=== PATIENT | female | born 1995 | race Caucasian/White ===

== ENCOUNTER → 2017-08-13 14:15 | Outpatient (CLI) | payer SELFPAY ==
--- NOTE | 2017-08-13 14:15 | DT_ITS ---
This patient was seen during an EMR downtime August 13, 2017 - August 20, 2017. This patient may have a combination of paper and electronic documentation or all paper documentation. All documentation is viewable within the e-chart portion of [employer] for each patient visit.
[2017-08-19 11:48] LABS: Chlamydia Trachomatis by PCR Negative (Negative); Neisserai gonorrhoeae by PCR Negative (Negative); Probe Check PASS; Sample Adequacy Control PASS; Specimen Processing Control PASS
[2017-08-27 11:11] LABS: HPV Reflexed? NOT INDICATED
== END ==
PROVIDERS: Visit Provider Obstetrics & Gynecology
DX: Z12.4 Encounter for screening for malignant neoplasm of cervix (principal); Z11.3 Encounter for screening for infections with a predominantly sexual mode of transmission
CPT/HCPCS: 87491; 87591; 88175; G0145

== ENCOUNTER → 2017-09-03 15:10 | Outpatient (CLI) | payer OTHER, SELFPAY ==
[2017-09-03 15:57] LABS: Color, Urine Yellow (Yellow); Glucose, Dipstick Normal (Normal); Ketone-Dipstick Negative (Negative); Leukocyte Esterase-Dipstick 100 /ul (Negative); Nitrite-Dipstick Negative (Negative); Occult Blood-Urine Negative /ul (Negative); Protein-Dipstick Negative (Negative); Urine Bilirubin Dipstick Negative (Negative); Urine Clarity Sl. Cloudy (Clear); Urine Urobilinogen Normal (Normal)
[2017-09-03 17:44] LABS: Absolute Lymphocyte Count 1.66 X10^3/ul (0.83-4.51); Absolute Neutrophil Count 8.2 X10^3/uL (2.0-7.7); Basophil# 0.01 X10^3/uL; Basophil% 0.1 % (0-1); Eosinophil# 0.14 X10^3/uL; Eosinophils% 1.3 % (0-5); Hematocrit 35.5 % (37-47); Hemoglobin 11.7 g/dl (12.0-15.0); Lymphocyte # 1.66 X10^3/ul (4.0); Lymphocyte % 15.3 % (19-41); Mean Corpuscular Hgb 32.1 pg (27.0-32.0); Mean Corpuscular Volume 97.3 fL (81-99); Mean Platelet Vol. 11.3 fl (6.2-12.0); Monocyte% 7.4 % (0-10); Neutrophil % 75.7 % (47-70); Platelet Count 245 K/mm3 (150-450); RBC Distribution Width CV 13.4 % (11.6-14.6); RBC Distribution Width SD 47.9 fl (35.1-43.9); Red Blood Count 3.65 M/mm3 (4.2-5.4); White Blood Count 10.8 K/mm3 (4.4-11.0)
[2017-09-03 17:49] LABS: POSITIVE COUNT NO; POSITIVE DIFFERENTIAL NO; POSITIVE MORPHOLOGY NO
[2017-09-03 17:51] LABS: Thyroid Stim Hormone (TSH) 1.19 uIU/mL (0.358-3.74)
[2017-09-03 18:29] LABS: HIV - WCH Non-Reactive (Nonreactive); Rubella IgG 267.6 IU/mL
[2017-09-05 14:35] LABS: HEPATITIS B SURFACE AG Negative (Negative); Hep C Antibodies <0.1 s/co ratio (0.0-0.9)
[2017-09-07 05:19] LABS: Prenatal RPR NONREACTIVE (NONREACTIVE)
== END ==
PROVIDERS: Visit Provider Obstetrics & Gynecology
DX: Z34.82 Encounter for supervision of other normal pregnancy, second trimester (principal)
CPT/HCPCS: 36415; 81002; 84443; 85025; 86703; 86762; 86803; 87340

== ENCOUNTER → 2017-10-01 13:47 | Outpatient (CLI) | payer SELFPAY ==
[2017-10-01 16:00] LABS: Glucose Challenge Gest 1H 50g 104 mg/dL (70-140)
== END ==
PROVIDERS: Visit Provider Obstetrics & Gynecology
DX: Z34.83 Encounter for supervision of other normal pregnancy, third trimester (principal)
CPT/HCPCS: 36415; 82950

== ENCOUNTER → 2017-11-28 13:37 | Outpatient (CLI) | payer SELFPAY ==
[2017-11-28 16:39] LABS: Group B Strep DNA By PCR Negative (Negative); Internal Control PASS; Probe Check PASS; Specimen Processing Control PASS
== END ==
PROVIDERS: Visit Provider Obstetrics & Gynecology
DX: Z36.85 Encounter for antenatal screening for Streptococcus B (principal)
CPT/HCPCS: 87081; 87653

== ENCOUNTER 2017-12-27 20:11 | Inpatient (IN) | payer SELFPAY ==
[2017-12-27 20:17] VITALS: BMI 28.0
[2017-12-27] MEDS: Lactated Ringers 1,000 ML 50 ML IV (20:30)
[2017-12-27 20:56] LABS: Hematocrit 36.6 % (37-47); Hemoglobin 12.4 g/dl (12.0-15.0); Mean Corp Hgb Conc 33.9 g/gl (32-36); Mean Corpuscular Hgb 33.4 pg (27.0-32.0); Mean Corpuscular Volume 98.7 fL (81-99); Mean Platelet Vol. 12.4 fl (6.2-12.0); Platelet Count 183 K/mm3 (150-450); RBC Distribution Width CV 12.6 % (11.6-14.6); RBC Distribution Width SD 44.1 fl (35.1-43.9); Red Blood Count 3.71 M/mm3 (4.2-5.4); White Blood Count 11.3 K/mm3 (4.4-11.0)
[2017-12-27 21:01] LABS: Scan Indicated on CBC? Y/N NO
--- NOTE | 2017-12-27 21:11 | PCM.OB.VAG ---
Vaginal Delivery Maternal Presentation: Active Labor Amniotic Membrane Rupture Type: Artificial Amniotic Fluid Description: Clear Final MARY: 12/24/17 Final MARY Source: US <20 weeks Gestational age: 40 Weeks and 3 Days Date of Procedure: 12/27/17 Pre-Operative Diagnosis: IUP Post-Operative Diagnosis: IUP Surgery/ Procedure Performed: Spontaneous Vaginal Delivery Type of Anesthesia: None Description of Procedure: Spontaneous vaginal delivery of a viable female with Apgars of 8/9 from an occiput anterior presentation with clear amniotic fluid and normal three-vessel placenta. No episiotomy. First-degree midline laceration repaired with 3-0 Vicryl suture. Sponge counts okay. Delivery physician: Gary Johnson MD. Presentation: Vertex Placental Delivery Description: Spontaneous Placenta Disposition: [facility] Cord Vessel Description: 3 Vessels Cord Entanglement: None Estimated Blood Loss: 250 cc Infant A gender: Female (1 minute): 8 (5 minute): 9 Episiotomy Description: None Laceration: Midline, 1st degree Medications given after delivery: IV Pitocin Complications: None
--- NOTE | 2017-12-27 21:12 | PCM.DCVAG ---
Discharge Diet: No Restrictions Discharge Activity: May Shower, May Take a Tub Bath May resume sexual activity in: 4-6 weeks Additional Activity Instructions:: Nothing in the vagina for 4-6 weeks. You may return to work/school in 6 weeks. Call your doctor if you observe: Fever of 101 or Higher, Inability to urinate, Inability to have a bowel movement, Using more than one pad per hour Additional Instructions: If you experience any of the following, contact your healthcare provider. Bleeding that soaks a pad every hour for 2 hours Unrelieved incision or abdominal pain Swelling, redness, discharge or bleeding from your incision or episiotomy site Your incision begins to separate Problems urinating (including inability to urinate or burning while urinating). Visual changes Severe headache Flu-like symptoms Pain or redness in one of both of your breasts Pain, warmth, tenderness or swelling in your legs, especially the calf area Frequent nausea and vomiting Symptoms of depression or anxiety If you experience any of the following, call 911 or go to the nearest Emergency Room. Chest pain Problems breathing Seizure activity Partial or complete paralysis of a body part, slurred speech, weakness or drooping of the face, or a sudden inability to walk or hold your balance Allergies/Adverse Reactions: Allergies No Known Allergies Allergy (Verified 09/19/16 04:06) Medications to take at Discharge Vit No.130/Iron/FA [ Vitamins] 1 each PO DAILY 09/19/16 Calcium Carbonate [Calcium] 500 mg PO BID 12/27/17 Please Follow Up With: Casi Batista MD - [phone] When: Call to make an appointment with your doctor in 6 weeks. Primary Care Physician: Michelle Tipton PA-C [Primary Care Provider] - Test Results: Test results from this visit will be discussed in further detail at your follow-up appointment, if applicable.
--- NOTE | 2017-12-27 21:13 | DCINST_ITS ---
Discharge Diet: No Restrictions Discharge Activity: May Shower, May Take a Tub Bath May resume sexual activity in: 4-6 weeks Additional Activity Instructions:: Nothing in the vagina for 4-6 weeks. You may return to work/school in 6 weeks. Call your doctor if you observe: Fever of 101 or Higher, Inability to urinate, Inability to have a bowel movement, Using more than one pad per hour Additional Instructions: If you experience any of the following, contact your healthcare provider. * Bleeding that soaks a pad every hour for 2 hours * Unrelieved incision or abdominal pain * Swelling, redness, discharge or bleeding from your incision or episiotomy site * Your incision begins to separate * Problems urinating (including inability to urinate or burning while urinating). * Visual changes * Severe headache * Flu-like symptoms * Pain or redness in one of both of your breasts * Pain, warmth, tenderness or swelling in your legs, especially the calf area * Frequent nausea and vomiting * Symptoms of depression or anxiety If you experience any of the following, call 911 or go to the nearest Emergency Room. * Chest pain * Problems breathing * Seizure activity * Partial or complete paralysis of a body part, slurred speech, weakness or drooping of the face, or a sudden inability to walk or hold your balance Allergies/Adverse Reactions: Allergies No Known Allergies Allergy (Verified 09/19/16 04:06) Medications to take at Discharge Vit No.130/Iron/FA [ Vitamins] 1 each PO DAILY 09/19/16 Calcium Carbonate [Calcium] 500 mg PO BID 12/27/17 Please Follow Up With: Casi Batista MD - [phone] When: Call to make an appointment with your doctor in 6 weeks. Primary Care Physician: Michelle Tipton PA-C [Primary Care Provider] - Test Results: Test results from this visit will be discussed in further detail at your follow- up appointment, if applicable.
[2017-12-27] MEDS: Oxytocin 30 units/NS 500 ml 30 UNITS/500 ML IV.SOLN 334 UNITS IV (22:14)
[2017-12-27] MEDS: Oxytocin 30 units/NS 500 ml 30 UNITS/500 ML IV.SOLN 167 UNITS IV (22:44)
[2017-12-27] MEDS: Methylergonovine 0.2 MG/ML Ampul IM (23:45)
[2017-12-28 00:20] VITALS: BP 118/76; PULSE 57; RESP 18; TEMP 36.6
[2017-12-28 04:36] VITALS: BP 109/70; PULSE 73; RESP 16; TEMP 36.6
[2017-12-28] MEDS: Ibuprofen 600 MG Tablet PO ×2 (04:58→15:57)
--- NOTE | 2017-12-28 07:25 | PCM.PN.OB ---
Subjective: Patient without complaints. Breast-feeding going well. Minimal vaginal bleeding noted. - Physical Exam Vital Signs Temp Pulse Resp BP 98 F 73 16 109/70 12/28/17 04:36 12/28/17 04:36 12/28/17 04:36 12/28/17 04:36 Oxygen Delivery Method Nasal Cannula Weight: 178 lb 12.718 oz Body Mass Index (BMI) 28.0 Intake and Output for Last 24 Hours 12/26/17 12/27/17 12/28/17 23:59 23:59 23:59 Intake Total 1847 / 1847 Output Total 800 / 800 Balance 1047 / 1047 Laboratory Tests Past 24 Hrs 12/27/17 12/27/17 20:30 20:30 WBC 11.3 H RBC 3.71 L Hgb 12.4 Hct 36.6 L MCV 98.7 MCH 33.4 H MCHC 33.9 RDW 12.6 RDW Differential 44.1 H Plt Count 183 MPV 12.4 H Blood Type A POSITIVE Antibody Screen NEGATIVE Medical Necessity - Tobacco Use Smoking Status: Never smoker Assessment/Plan All Active Problems Preeclampsia (Acute) Preeclampsia (Acute) Doing well day #1. Continuing present care.
[2017-12-28 08:00] VITALS: BP 120/74; PULSE 63; RESP 16; TEMP 36.5
[2017-12-28] MEDS: Acetaminophen 500 MG Tablet 1000 MG PO ×2 (08:10→19:39)
[2017-12-28 12:00] VITALS: BP 106/75; PULSE 61; RESP 16; TEMP 36.3
[2017-12-28 15:58] VITALS: BP 116/75; PULSE 82; RESP 16; TEMP 36.2; O2SAT 97
[2017-12-28 21:03] VITALS: BP 117/64; PULSE 74; RESP 15; TEMP 36.3; O2SAT 98
[2017-12-29 02:00] VITALS: BP 111/56; PULSE 71; RESP 15; TEMP 36.4; O2SAT 97
[2017-12-29] MEDS: Ibuprofen 600 MG Tablet PO (06:09)
[2017-12-29 08:14] VITALS: BP 111/63; PULSE 56; RESP 16; TEMP 36.3; O2SAT 98
--- NOTE | 2017-12-29 10:15 | PCM.PN.OB ---
Subjective: Patient without complaints. Minimal vaginal bleeding. Wants to go home today. - Physical Exam Vital Signs Temp Pulse Resp BP Pulse Ox 97.4 F L 56 L 16 111/63 98 12/29/17 08:14 12/29/17 08:14 12/29/17 08:14 12/29/17 08:14 12/29/17 08:14 Oxygen Delivery Method Room Air Weight: 178 lb 12.718 oz Body Mass Index (BMI) 28.0 Intake and Output for Last 24 Hours 12/27/17 12/28/17 12/29/17 23:59 23:59 23:59 Intake Total 1847 / 1847 Output Total 800 / 800 Balance 1047 / 1047 Medical Necessity - Tobacco Use Smoking Status: Never smoker Assessment/Plan All Active Problems Preeclampsia (Acute) Preeclampsia (Acute) Doing well day #2. Will release to home with routine instructions.
[2017-12-29 11:23] VITALS: BP 111/71; PULSE 68; RESP 16; TEMP 36.2; O2SAT 98
[2017-12-29] MEDS: Acetaminophen 500 MG Tablet 1000 MG PO (11:23)
== END 2017-12-29 13:00 | disposition home or self-care (01) | DRG 807 ==
PROVIDERS: Admitting Provider Obstetrics & Gynecology; Family Provider Family Medicine; PCP Family Medicine; Visit Provider Obstetrics & Gynecology
DX: O70.0 First degree perineal laceration during delivery (principal); Z37.0 Single live birth; Z3A.40 40 weeks gestation of pregnancy
CPT/HCPCS: 59025; 59050; 85027; 86850; 86900; 99218; J7120; G0378

== ENCOUNTER → 2023-05-03 | Outpatient (CLI) | payer SELFPAY ==
--- NOTE | 2023-05-03 14:26 | FLU_PTH ---
PATHOLOGY RESULTS PATIENT: SHARLENE URIOSTEGUI LOC: [facility] U#:[id number] AGE/SX: 27/F ROOM: RE05/03/[address]: Dr. Ramin Garcia MD : 1995 BED: DIS: 05/03/2023 SPEC #: [id number] RECD: 05/04/23 06:53 STATUS: ANA PACO #: [id number] BO: 05/03/23 14:[address]: Ramin Garcia DEPT: CYTOLOGY RECD BY: Phoebe Adam ENTERED: 05/04/23 06:55 SP TYPE: Fluid OTHR DR: Michelle Tipton PA-C Tissues: Thyroid gland, NOS Thyroid gland, NOS Thyroid gland, NOS Procedures: Special Stain Group II Surgery Specimen Level IV Cytospin Fluid HEADER OPERATION: Fine needle aspiration of thyroid nodule PRE-OP DIAGNOSIS: Thyroid nodule TISSUE SUBMITTED: A - Right thyroid nodule fluid, B - Right thyroid nodule fluid, C - Right thyroid nodule x4 slides DIAGNOSIS CYTOLOGY A. Fine needle aspiration, right thyroid nodule (cytospin and cell block): Rare atypical follicular cell present. See comment. B. Fine needle aspiration, right thyroid nodule (cytospin and cell block): Negative for malignant cells. C. Fine needle aspiration, right thyroid nodule (smears): Rare atypical follicular cells present, [place] Category III. See comment. AM:yessi 05/07/2023 COMMENT A. The specimen primarily contains blood, scattered macrophages and very rare atypical follicular cell. Clinical correlation is suggested. C. The specimen primarily contains blood, scattered macrophages and very rare follicular cells with mild atypia. Clinical correlation is suggested. The [place] System for thyroid diagnostic categorization was used in the evaluation of this case. Multi-gene next-generation sequencing panel (Afirma) is recommended for this lesion. This recommendation was communicated to the physician's office. Case has been reviewed in consultation with Dr. Smith who concurs with the above diagnosis. IDC:SJ CYTOLOGY STUDY Slides are reviewed. CYTOLOGY GROSS A - Received is 30 ml of red cloudy fluid labeled with the patient's name and and designated per the requisition as right thyroid nodule. Submitted for cytology preparation including cell block. B - Received is 5 ml of red cloudy fluid labeled with the patient's name and and designated per the requisition as right thyroid nodule. Submitted for cytology preparation including cell block. C - Received are four smears labeled with the patient's name and designated per the requisition as right thyroid nodule. Submitted for staining. / yessi 05/04/2023 TC:? CPT: 98561 x3, 18125 x2
== END | disposition home or self-care (01) ==
LOC: LABSPEC 15:55
PROVIDERS: PCP Family Medicine; Visit Provider Surgery
DX: E04.1 Nontoxic single thyroid nodule (principal)
CPT/HCPCS: 88108; 88305; 88313

== ENCOUNTER → 2023-05-18 | Outpatient (CLI) | payer SELFPAY ==
--- NOTE | 2023-05-18 09:25 | FLU_PTH ---
PATHOLOGY RESULTS PATIENT: SHARLENE URIOSTEGUI LOC: [facility] U#:[id number] AGE/SX: 27/F ROOM: RE05/18/[address]: Dr. Ramin Garcia MD : 1995 BED: DIS: 05/18/2023 SPEC #: [id number] RECD: 05/18/23 11:29 STATUS: ANA PACO #: [id number] BO: 05/18/23 09:[address]: Ramin Garcia DEPT: CYTOLOGY RECD BY: Phoebe Adam ENTERED: 05/18/23 11:30 SP TYPE: Fluid OTHR DR: Michelle Tipton PA-C Tissues: Thyroid gland, NOS Thyroid gland, NOS Procedures: Special Stain Group II Surgery Specimen Level IV Cytospin Fluid HEADER OPERATION: Fine needle aspiration, right thyroid nodule PRE-OP DIAGNOSIS: Right thyroid nodule TISSUE SUBMITTED: A - Right thyroid nodule fluid, B - Right thyroid nodule x6 slides DIAGNOSIS CYTOLOGY A. Right thyroid nodule fluid, fine needle aspiration (cytospin and cell block): Negative for malignant cells. See comment. B. Right thyroid nodule, fine needle aspiration (smears): Atypical follicular cells of undetermined significance in the background of cystic follicular lesion with Hurthle cell features, [place] Category III. Adequate for evaluation. See comment. SJ:rg 05/21/2023 COMMENT A. The specimen represents cystic follicular nodule and consists of predominantly macrophages and a few clusters of follicular cells. B. Per recommendations and a clinician-approved plan (a call was made to the referring doctor about the recommendation), genomic testing (Afirma) has been submitted. Results will be reported as an addendum and faxed to clinician. The [place] System for thyroid diagnostic categorization was used in the evaluation of this case. Correlation with clinical, radiologic findings and appropriate follow up are necessary. Please make reference to previous specimen ([id number]), FNA, right thyroid nodule with diagnosis of rare atypical follicular cells and FNA, right thyroid nodule fluid with diagnosis of negative for malignant cells and FNA, right thyroid nodule smears with diagnosis of rare atypical follicular cells present. Case has been reviewed in consultation with Dr. Bolivar who concurs with the above diagnosis. IDC:AM CYTOLOGY STUDY Slides are reviewed. CYTOLOGY GROSS A - Received is 30 ml of light chavarria fluid labeled with the patient's name and and designated per the requisition as right thyroid nodule. Submitted for cytology preparation including cell block. B - Received are six smears labeled with the patient's name and designated per the requisition as right thyroid nodule. Submitted for staining. / yessi 05/18/2023 TC:5 [facility]: [id number] x2, [id number] ADDENDUM ADDENDUM 06/07/2023 09:39 AFIRMA RESULTS REPORT RESULTS INTERPRETATION: The result of this 3.2 cm [place] III nodule A is Afirma GSC benign, which suggests a low risk of cancer of approximately 4%. Please see complete report in e-chart or EMR
--- OUTSIDE RECORDS SUMMARY | 2023-05-18 11:37 | XMS RPT_ITS | CCD ---
Author Name Unknown Address [facility] [address] [place] [address] Organization [facility] Care Team Providers Care Player Development Manager Name Role Phone Uptain CNM, Crystal K Unavailable Uptain CNM, Crystal K Unavailable Jade ASSISTANT DIRECTOR OF PUBLIC WORKS, Kelli Unavailable Unavailabl e Lucina ASSISTANT DIRECTOR OF PUBLIC WORKS, Alla Unavailable Gina Tipton PA-C Unavailable Musa ASSISTANT DIRECTOR OF PUBLIC WORKS, Domi Unavailable Unavailable Meghna ASSISTANT DIRECTOR OF PUBLIC WORKS, Arielle Unavailable Unavailable Rani Veliz PA-C Unavailable [phone] Denilson ACOSTA, Gary Youssef Unavailable [phone] Martin ASSISTANT DIRECTOR OF PUBLIC WORKS, Fatou Squires Unavailable Unavailable Guera ASSISTANT DIRECTOR OF PUBLIC WORKS, Janis Unavailable Unavailable Unavailable Unavailable [facility] Unavailable GINA TIPTON Consulting Unavailable RANI VELIZ Attending Unavailable RANI VELIZ Primary Care Unavailable RANI VELIZ Admitting Unavailable PROVIDER, UNKNOWN Consulting Unavailable Medications Completed/Discontinued Medications Medication Drug Class(es) Dates Sig (Normalized) Sig (Original) amoxicillin 500 mg oral tablet (4 sources) Penicillin-class Antibacterial Start: 03-23-2011 End: 04-02-2011 take 1 tablet by mouth three times daily AMOXICILLIN, 500MG (Oral Tablet) ; 1 Tab three times daily for 10 days Quantity: 30 {Tab} Refills: 0 Ordered: 23-Mar-2011 DIANNE Tipton Start: 23-Mar-2011 End: 02-Apr-2011 Status: Inactive cephalexin 500 mg oral capsule (4 sources) Cephalosporin Antibacterial Start: 04-07-2013 End: 02-01-2015 take 1 capsule by mouth three times daily CEPHALEXIN, 500MG (Oral Capsule) ; 1 Capsule tid for 0 days Quantity: 30 {Capsule} Refills: 0 Ordered: 01-Feb-2015 Start: 07-Apr-2013 End: 01-Feb-2015 Status: Inactive nystatin 100 unt/mg topical ointment (4 sources) Polyene Antifungal Start: 07-21-2019 End: 07-26-2019 Nystatin [id number] UNIT/GM External Ointment ; 1 (one) Application four times daily for 5 days Quantity: 30 {Gram} Refills: 0 Ordered: 21-Jul-2019 Musa, MAURO Domi Start: 21-Jul-2019 End: 26-Jul-2019 Status: Inactive Comments: small amount to nipples 4x daily Problems Active Problems Problem Classification Problem Date Documented Date Episodic/Chronic Abdominal pain (4 sources) Pain in female pelvis; Translations: [Pelvic and perineal pain] 12-16-2015 Episodic Immunizations and screening for infectious disease (4 sources) Exposure to streptococcal pharyngitis; Translations: [Contact with and (suspected) exposure to other bacterial communicable diseases] 07-29-2014 Episodic Influenza (4 sources) Disorder of respiratory system; Translations: [Influenza due to unidentified influenza virus with other respiratory manifestations] 04-29-2019 Episodic Mycoses (8 sources) Candidiasis of mouth; Translations: [Candidal stomatitis] 11-30-2020 Episodic Nonmalignant breast conditions (4 sources) Lump in left breast; Translations: [Unspecified lump in the left breast, unspecified quadrant] 02-01-2015 Episodic Other aftercare (4 sources) Long-term (current) use of other medications 03-23-2011 Episodic Other and unspecified benign neoplasm (4 sources) Lipoma of skin and subcutaneous tissue of neck; Translations: [Benign lipomatous neoplasm of skin and subcutaneous tissue of head, face and neck] 04-09-2013 Episodic Other nervous system disorders (4 sources) Carpal tunnel syndrome of right wrist; Translations: [Carpal tunnel syndrome, right upper limb] 04-09-2013 Chronic Other and delivery including normal (20 sources) Normal ; Translations: [Encounter for supervision of other normal , third trimester] 03-16-2021 Episodic Other screening for suspected conditions (not mental disorders or infectious disease) (8 sources) Patient encounter status; Translations: [Encounter for screening for Streptococcus B] 03-16-2021 Episodic Other skin disorders (8 sources) Mass of neck; Translations: [Localized swelling, mass and lump, neck] 04-18-2023 Episodic Other skin disorders (2 sources) Localized swelling, mass and lump, neck; Translations: [Localized swelling, mass and lump, neck] Onset: 04-27-2023 Episodic Residual codes; unclassified (8 sources) Gestation period, 14 weeks; Translations: [14 weeks gestation of ] 11-30-2020 Episodic Residual codes; unclassified (8 sources) FH: Thyroid disorder; Translations: [Family history of other endocrine, nutritional and metabolic diseases] 04-18-2023 Episodic Residual codes; unclassified (4 sources) Gestation period, 39 weeks; Translations: [39 weeks gestation of ] 04-13-2021 Episodic Residual codes; unclassified (4 sources) Gestation period, 38 weeks; Translations: [38 weeks gestation of ] 04-06-2021 Episodic Residual codes; unclassified (4 sources) Gestation period, 37 weeks; Translations: [37 weeks gestation of ] 03-29-2021 Episodic Residual codes; unclassified (4 sources) Gestation period, 35 weeks; Translations: [35 weeks gestation of ] 03-16-2021 Episodic Residual codes; unclassified (4 sources) Gestation period, 31 weeks; Translations: [31 weeks gestation of ] 02-17-2021 Episodic Residual codes; unclassified (4 sources) Gestation period, 25 weeks; Translations: [25 weeks gestation of ] 01-06-2021 Episodic Residual codes; unclassified (4 sources) Gestation period, 20 weeks; Translations: [20 weeks gestation of ] 11-30-2020 Episodic Thyroid disorders (3 sources) Thyroid nodule; Translations: [Nontoxic single thyroid nodule] Onset: 04-27-2023 04-27-2023 Chronic Unclassified (4 sources) 04-13-2021 Past or Other Problems Problem Classification Problem Date Documented Da te Episodic/Chronic Unclassified (4 sources) Post- visit - The patient is here for a scheduled follow-up visit after a vaginal delivery. There were no complications. The patient feels well with no complaints, is sleeping well and has good energy level. The patient has complaints of vaginal discharge. There are no urinary problems. There are no bowel problems. Perineum/wound: perineum healing well. There is no lochia. The patient is breast feeding the infant. There are no feeding difficulties. Menstruation: has not resumed. Patient states that sexual activity has resumed and contraception is used. The patient's current method of control is condoms. The patient has resumed physical activity. Patient states that she is coping/adjusting to motherhood well and family is interacting well with . 06-15-2021 Unclassified (4 sources) visit - The patient is here for a 39 week (3 days) visit. 04-13-2021 Unclassified (4 sources) visit - The patient is here for a 38 week (3 days) visit. 04-06-2021 Unclassified (4 sources) visit - The patient is here for a 37 week (2 days) visit. 03-29-2021 Unclassified (4 sources) visit - The patient is here for a 35 week (3 days) visit. 03-16-2021 Unclassified (4 sources) visit - The patient is here for a 31 week visit. 02-17-2021 Unclassified (4 sources) visit - The patient is here for a 25 week visit. 01-06-2021 Unclassified (4 sources) visit - The patient is here for a 20 week (2 days) visit. 11-30-2020 Unclassified (4 sources) visit (initial) - The patient suspects she is due to missed menses. - (4) Parity - (3) Abortions - (0). The patient has no complaints. There has been no vaginal discharge. There has been no vaginal bleeding. There have been no urinary problems. There have been no bowel problems. Contraceptive history includes none. There is no medical history of asthma, Crohn's disease, Darlin's disease, diabetes mellitus type I, diabetes mellitus type II, endometriosis, gastritis, gastroesophageal reflux disease, HIV infection, hypertension, iron deficiency anemia, irritable bowel disease, lupus erythematosus, mitral valve disease, pelvic inflammatory disease, peptic ulcer disease, renal stones, rheumatoid arthritis, sexually transmitted disease, sickle cell disease, thalassemia, thyroid disease or menstrual irregularities. There is no previous surgical history. There is no alcohol, caffeine, illicit drug or tobacco use. 10-18-2020 Unclassified (4 sources) Cold Symptoms - Symptoms include nasal congestion, runny nose, non-purulent sputum, sore throat, dry cough, productive cough, fever (up to 102), chills, general malaise and headache, but do not include sneezing. The onset was sudden 2 day(s) ago (fever was first noted last night). The symptoms occur constantly. The patient describes this as severe and worsening. Current treatment includes acetaminophen. Risk factors do not include smoking. The patient has been exposed to an individual with a cough and an individual with similar symptoms. Patient denies history of seasonal allergies, recurrent sinusitis or asthma. Note for Upper respiratory infection : pt is 31 weeks 04-29-2019 Unclassified (4 sources) Abdominal pain - The onset of the abdominal pain has been acute and has been occurring in an intermittent pattern for 5 days. The course has been recurrent. The pain is described as a moderate sharp pain and stabbing. The pain is located in the right lower quadrant and radiates to the back (right lower back). The symptoms are aggravated by standing (Pt. was on her feet all day yesterday, hernandez, and last night pain was worse.) but have no relieving factors. The symptoms have been associated with amenorrhea (4 days late), while the symptoms have not been associated with constipation, diarrhea, dysuria, fever, nausea or vomiting. Note for Abdominal pain : Pt. has regular menstrual cycles of 28-29 days. Pt. was to start her period SundayDec 11, and has not started her menses yet. Pt. has not been previously. Pt. recently got (August 2015)and does not use any control. Pt. LMP- 11/16/15. 12-16-2015 Unclassified (4 sources) Breast lump - The lump is on the left breast. The onset of the lump has been gradual and has been occurring in a persistent pattern for 6 months. The course has been constant. The lump is described as non tender. The lump is described as mild. The first day of the last menstrual period was : (12/30/14). Note for Breast lump : Pt. notes that her left breast has always been larger than her right breast. 02-01-2015 Unclassified (4 sources) lump on neck - Noticed lump at base of neck 3 days ago. Is tender. Had some tingling in the right arm that is gone now. 04-09-2013 Results Test Name Value Interpretation Reference Range Facil ity Vital Signs Date Time Vital Sign Value Performing Clinician Ronal chopra 04-18-2023 10:53-0500 Body height 172.72 cm Kelli Hansen [facility], [facility].; [facility], [facility]. 04-18-2023 10:53-0500 Body mass index (BMI) [Ratio] 22.66 kg/m2 [facility], [facility].; [facility], [facility]. 04-18-2023 10:53-0500 Body surface area Derived from formula 1.8 m2 [facility], [facility].; [facility] [employer] [facility] 04-18-2023 10:53-0500 Body temperature 98.5 [degF] Kelli Hansen [facility], [facility].; [place] [employer] [facility] Encounters Encounter Date Encounter Type Care Provider Facility Start: 04-27-2023 End: 04-27-2023 Orders Crystal Uptain CNM Work Phone: [facility], [facility]. Start: 04-27-2023 Review Crystal Uptain CNM Work Phone: [facility], [employer]. Start: 04-27-2023 End: 04-27-[address] [facility] Start: 04-18-2023 End: 04-18-2023 Patient encounter procedure [facility] Start: 06-15-2021 End: 06-15-2021 Office outpatient visit 25 minutes Crystal [facility]ain CNM [facility] Start: 04-13-2021 End: 04-13-2021 Office outpatient visit 15 minutes Crystal Uptain CNM [facility] Start: 04-06-2021 End: 04-06-2021 Office outpatient visit 15 minutes Crystal Uptain CNM Work Phone: [employer] Start: 03-29-2021 End: 03-29-2021 Office outpatient visit 15 minutes Crystal Uptain CNM Work Phone: [employer] Start: 03-16-2021 End: 03-16-2021 Office outpatient visit 15 minutes Crystal Uptain CNM Work Phone: [employer] Start: 02-17-2021 End: 02-17-2021 Patient encounter procedure Crystal Uptain CNM Work Phone: [employer] Start: 01-06-2021 End: 01-06-2021 Patient encounter procedure Crystal Uptain CNM Work Phone: [employer] Start: 11-30-2020 End: 11-30-2020 Office outpatient visit 15 minutes Crystal Uptain CNM Work Phone: [employer] Start: 10-18-2020 End: 10-18-2020 Office outpatient visit 25 minutes Crystal Uptain CNM Work Phone: [employer] Start: 07-21-2019 End: 07-22-2019 Medication Crystal Uptain CNM Work Phone: [employer] Start: 04-29-2019 End: 04-29-2019 Patient encounter procedure Crystal Uptain CNM Work Phone: [employer] Start: 12-16-2015 End: 12-16-2015 Patient encounter procedure Crystal Uptain CNM Work Phone: [employer] Start: 02-01-2015 End: 02-01-2015 Patient encounter procedure Crystal Uptain CNM Work Phone: [employer] Start: 07-29-2014 End: 07-29-2014 Medication Crystal Uptain CNM Work Phone: [employer] Start: 04-07-2013 End: 04-09-2013 Patient encounter procedure Crystal [facility]ain CNM [facility]. Start: 03-23-2011 End: 03-23-2011 Medication Crystal Uptain CNM Work Phone: [facility]. Procedures Date Procedure Procedure Detail Performing Clinician Start: 04-18-2023 End: 04-27-2023 Us soft tissue head & neck real time imge docm Rani Veliz PA-C Work Phone: Start: 06-15-2021 End: 06-15-2021 Screening for depression performed Crystal K Uptain CNM Work Phone: Start: 04-13-2021 End: 04-13-2021 Ob care antepartum vag dlvr & Crystal K Uptain CNM Work Phone: Start: 04-06-2021 End: 04-06-2021 Ob care antepartum vag dlvr & Crystal K Uptain CNM Work Phone: Start: 03-29-2021 End: 03-29-2021 Ob care antepartum vag dlvr & Crystal K Uptain CNM Work Phone: Start: 03-16-2021 End: 03-16-2021 Ob care antepartum vag dlvr & Crystal K Uptain CNM Work Phone: Start: 02-17-2021 End: 02-17-2021 Ob care antepartum vag dlvr & Gary Oreilly MD Work Phone: Start: 01-06-2021 End: 01-11-2021 Us preg uterus after 1st trimest 03/12 gestation Gary Oreilly MD Work Phone: Start: 01-06-2021 End: 01-06-2021 Ob care antepartum vag dlvr & Gary Oreilly MD Work Phone: Start: 11-30-2020 End: 11-30-2020 Ob care antepartum vag dlvr & Crystal K Uptain CNM Work Phone: Start: 10-18-2020 End: 10-18-2020 Us preg uterus after 1st trimest 03/12 gestation Gema Mcdowell CNAlverto Work Phone: Start: 10-18-2020 End: 10-18-2020 Ob care antepartum vag dlvr & Gema Mcdowell CNAlverto Work Phone: Start: 02-01-2015 End: 02-03-2015 Us breast uni real time with image complete Gina Tipton PA-C Work Phone: Plan of Treatment Date Care Activity Detail Author Start: 04-18-2023 Blood count complete auto&auto difrntl wbc CBC, PLATELETS & AUT DIFF (F) (57842) Start: 18-Apr-2023 11:36 Request [employer]. Start: 04-18-2023 Microsomal antibodie s each THYROID ANTIBODY ([id number]) Start: 18-Apr-2023 11:35 Request [employer]; [employer]. Start: 04-18-2023 Assay of thyroglobulin Thyrogl obulin Panel (97165, 63410) (00897) Start: 18-Apr-2023 11:35 Request [employer]; [employer]. Start: 04-18-2023 Assay of thyroid stimulating hormone tsh TSH (THYROID STIMULATING HORMONE) ([id number]) Start: 18-Apr-2023 11:34 Request [employer]. Start: 04-18-2023 Assay of free thyroxine T4 JUANITO E ([id number]) Start: 18-Apr-2023 11:34 Request [employer]. Start: 04-18-2023 End: 04-18-2023 Us soft tissue head & neck real time imge docm Thyroid Ultrasound (47524) Date: 18-Apr-2023 [employer]. Payers Date Payer Category Payer Unknown [id number] Unknown Social History Date Type Detail Facility Spouse Spouse Ravi Family [facility].; [employer]. Tobacco Use: Tobacco Use: ; Never smoker. [employer]. Female Ravi Pereira [employer]. Work Phone: Never smoked tobacco [employer]. Work Phone: Summary Purpose Family History No Family History Records Found Breast Cancer Status:Active Comments:Negativ e Family History Of. Thyroid Cancer Status:Active Comments:Materna l Aunt. Thyroid Nodule Status:Active Comments:Mother. 5 maternal aunts Breast Cancer Status:Active Comments:Negativ e Family History Of. Thyroid Cancer Status:Active Comments:Materna l Aunt. Thyroid Nodule Status:Active Comments:Mother. 5 maternal aunts Breast Cancer Status:Active Comments:Negativ e Family History Of. Thyroid Cancer Status:Active Comments:Materna l Aunt. Thyroid Nodule Status:Active Comments:Mother. 5 maternal aunts Breast Cancer Status:Active Comments:Negativ e Family History Of. Thyroid Cancer Status:Active Comments:Materna l Aunt. Thyroid Nodule Status:Active Comments:Mother. 5 maternal aunts Advance Directives No Advanced Directives Records FoundNo Advanced Directives Records FoundNo Advanced Directives Records Found Additional Source Comments INFORMATION SOURCE (unrecogn ized section and content) DATE CREATED AUTHOR AUTHOR'S ORGANIZ ATION 04/24/2023 [facility] DATE CREATED AUTHOR AUTHOR'S ORGANIZ ATION 05/01/2023 [facility] FOR RECORDS PERTAINING TO PATIENTS WHO ARE OR HAVE BEEN ENROLLED IN A CHEMICAL DEPENDENCY/SUBSTANCEABUSE PROGRAM, SOME INFORMATION MAY BE OMITTED. This clinical summary was aggregated from multiple sources. Caution should be exercised in using it in the provision of clinical care. This summary normalizes information from multiple sources, and as a consequence, information in this document may materially change the coding, format and clinical context of patient data. In addition, data may be omitted in some cases. CLINICAL DECISIONS SHOULD BE BASED ON THE PRIMARY CLINICAL RECORDS. [employer] provides no warranty or guarantee of the accuracy or completeness of information in this document.
== END | disposition home or self-care (01) ==
PROVIDERS: PCP Family Medicine; Referring Provider Surgery; Visit Provider Surgery
DX: E04.1 Nontoxic single thyroid nodule (principal)
CPT/HCPCS: 88108; 88305; 88313

== ENCOUNTER → 2024-07-22 | Outpatient (CLI) | payer SELFPAY ==
--- NOTE | 2024-07-22 12:28 | US_ITS ---
PROCEDURE: THYROID 07/22/2024 REASON FOR EXAM: THYROID NODULE F/U TECHNIQUE: High-frequency thyroid ultrasound, including grayscale and color-flow images. REFERENCE LINKS: TI-RADS Chart: [email or web address] TI-RADS Calculator Tool with Reference Images: [email or web address]/ COMPARISON: None FINDINGS: Right thyroid lobe size: 5.6 cm x 1.4 cm x 1.6 cm Left thyroid lobe size: 4.5 cm x 1.4 cm x 1.3 cm Isthmus: 0.2 cm Background parenchymal echotexture is homogeneous. Nodules: . Lobe: Right, Location: Inferior pole, Size: 1 cm x 0.5 cm x 0.8 cm cm, Composition: Mixed cystic and solid (+1) Echogenicity: Hyper to Isoechoic (+1) Margin: Ill-defined (+0) Shape: Wider than tall (+0) Echogenic Foci: None (+0) TI-RADS: <2 = TR 1 * 2 = TR 2 * 3 = TR 3 * 4-6 = TR 4 * >6 = TR 5 . Lobe: Right, Location: Inferior pole, Size: 1.2 cm x 1.2 cm x 0.6 cm cm, Composition: Solid or almost completely solid (+2) Echogenicity: Hypoechoic (+2) Margin: Smooth (+0) Shape: Wider than tall (+0) Echogenic Foci: None (+0) TI-RADS: <2 = TR 1 * 2 = TR 2 * 3 = TR 3 * 4-6 = TR 4 * >6 = TR 5 No nodules are seen in the left kidney. US/Thyroid IMPRESSION: 2 solid nodules in the right lobe as described. Biopsy of the larger nodule re commended. RECOMMENDATION: Based on most suspicious nodule. Nodule size = largest diameter Only evaluate nodule if =>5 mm. Growth > 20% in 2 dimensions = worsening. Follow up to 4 nodules. Recommend biopsy for no more than 2 nodules. Reading Location: [id number]
== END | disposition home or self-care (01) ==
PROVIDERS: PCP Physician Assistant; Referring Provider Surgery; Visit Provider Surgery
DX: E04.1 Nontoxic single thyroid nodule (principal)
CPT/HCPCS: 76536